=== PATIENT | male | born 1960 | race Caucasian/White ===

== ENCOUNTER 2021-04-07 18:03 | Emergency (ER) | payer BC ==
--- NOTE | 2021-04-07 20:24 | EDM.PDOCBH ---
ED HPI GENERAL MEDICAL PROBLEM - General Chief Complaint: Drug or Alcohol Abuse Stated Complaint: POSSIBLE DETOX Time Seen by Provider: 04/07/21 20:21 Source of Information: Reports: Patient History Limitations: Reports: No Limitations - History of Present Illness INITIAL COMMENTS - FREE TEXT/NARRATIVE: pt had a total knee done recently. He started abusing the oxycodone and then he started drinking. His ask him to leave the house a few days ago because of the drinking. He went to the [facility] and he asked for help today. He has a past history of a drinking problem and has been to treatment. Onset: Gradual Duration: Day(s): Location: Reports: Generalized, Other (pt was found today by ghis lying on the [facility] floor. ) Associated Symptoms: Reports: Other (pt is having persistent pain in the left knee. w) Left Knee Pain Score (Numeric/FACES): 8 - Related Data Allergies Allergy/AdvReac Type Severity Reaction Status Date / Time No Known Allergies Allergy Verified 04/07/21 20:24 Home Meds: Home Meds Escitalopram [Lexapro] 1 tab PO DAILY 04/07/21 [History] Losartan [Cozaar] 1 tab PO DAILY 04/07/21 [History] hydrOXYzine HCL [hydrOXYzine] 1 tab PO BID 04/07/21 [History] oxyCODONE 1 - 2 tab PO ASDIRECTED 04/07/21 [History] ED ROS GENERAL - Review of Systems Review Of Systems: See Below Constitutional: Reports: No Symptoms HEENT: Reports: No Symptoms Respiratory: Reports: No Symptoms Cardiovascular: Reports: No Symptoms Endocrine: Reports: No Symptoms GI/Abdominal: Reports: Nausea, Vomiting : Reports: No Symptoms Musculoskeletal: Reports: No Symptoms Skin: Reports: No Symptoms ED EXAM, BEHAVIORAL HEALTH - Physical Exam Exam: See Below Text/Narrative:: pt is feeling shakey and at this point is asking for help. He does want to go to detox. Exam Limited By: No Limitations General Appearance: Alert, Anxious, Mild Distress, Other (pupils are equal and reactive. ) Ears: Normal TMs Nose: Normal Inspection Throat/Mouth: Normal Inspection Head: Atraumatic Neck: Normal Inspection Respiratory/Chest: No Respiratory Distress Cardiovascular: Regular Rate, Rhythm, Tachycardia GI/Abdominal: Soft, Non-Tender Rectal (Males) Exam: Deferred Back Exam: Other (pt has a superficial abrasion on his back where he fell. ) Extremities: Other (pt had a total knee on the left recently done. This looks good and he has fair range of motion. He states he is numb below the incision. ) Neurological: Alert, Normal Cognition Psychiatric: Other (pt is feeling agitated. ) COURSE, BEHAVIORAL HEALTH COMP - Course Vital Signs: Last Vital Signs Temp 36.1 C 04/07/21 19:43 Pulse 124 H 04/07/21 19:43 Resp 16 04/07/21 19:43 BP 150/101 H 04/07/21 19:43 Pulse Ox 94 L 04/07/21 19:43 Orders, Labs, Meds: Laboratory Tests 04/07/21 04/07/21 04/07/21 Range/Units 20:20 20:20 20:20 WBC 6.1 (4.5-11.0) K/uL RBC 5.28 (4.30-5.90) M/uL Hgb 17.0 H (12.0-15.0) g/dL Hct 48.8 (40.0-54.0) % MCV 92 (80-98) fL MCH 32 H (27-31) pg MCHC 35 (32-36) % Plt Count 136 L (150-400) K/uL Neut % (Auto) 57.4 (36-66) % Lymph % (Auto) 31.4 (24-44) % [place] % (Auto) 9.1 H (2-6) % Eos % (Auto) 1.8 L (2-4) % Baso % (Auto) 0.3 (0-1) % Sodium 142 (140-148) mmol/L Potassium 4.0 (3.6-5.2) mmol/L Chloride 100 (100-108) mmol/L Carbon Dioxide 25 (21-32) mmol/L Anion Gap 17.2 H (5.0-14.0) mmol/L BUN 14 (7-18) mg/dL Creatinine 1.0 (0.8-1.3) mg/dL Est Cr Clr Drug Dosing 89.89 mL/min Estimated GFR (MDRD) > 60 (>60) Glucose 100 (74-106) mg/dL Calcium 9.0 (8.5-10.1) mg/dL Total Bilirubin 1.3 H (0.2-1.0) mg/dL AST 52 H (15-37) U/L ALT 37 (12-78) U/L Alkaline Phosphatase 138 H (46-116) U/L Total Protein 8.2 (6.4-8.2) g/dL Albumin 4.3 (3.4-5.0) g/dL Globulin 3.9 H (2.3-3.5) g/dL Albumin/Globulin Ratio 1.1 L (1.2-2.2) Urine Color (YELLOW) Urine Appearance (CLEAR) Urine pH (5.0-8.0) Ur Specific [place] (1.008-1.030) Urine Protein (NEGATIVE) mg/dL Urine Glucose (UA) (NEGATIVE) mg/dL Urine Ketones (NEGATIVE) mg/dL Urine Occult Blood (NEGATIVE) Urine Nitrite (NEGATIVE) Urine Bilirubin (NEGATIVE) Urine Urobilinogen (0.2-1.0) EU/dL Ur Leukocyte Esterase (NEGATIVE) Urine RBC (0-5) Urine WBC (0-5) Ur Epithelial Cells Amorphous Sediment Urine Bacteria Urine Mucus Urine Other Urine Opiates Screen (NEGATIVE) Ur Oxycodone Screen (NEGATIVE) Urine Methadone Screen (NEGATIVE) Ur Propoxyphene Screen (NEGATIVE) Ur Barbiturates Screen (NEGATIVE) Ur Tricyclics Screen (NEGATIVE) Ur Phencyclidine Scrn (NEGATIVE) Ur Amphetamine Screen (NEGATIVE) U Methamphetamines Scrn (NEGATIVE) Urine MDMA Screen (NEGATIVE) U Benzodiazepines Scrn (NEGATIVE) U Cocaine Metab Screen (NEGATIVE) U Marijuana (THC) Screen (NEGATIVE) Ethyl Alcohol 362 mg/dL 04/07/21 04/07/21 Range/Units 20:27 20:27 WBC (4.5-11.0) K/uL RBC (4.30-5.90) M/uL Hgb (12.0-15.0) g/dL Hct (40.0-54.0) % MCV (80-98) fL MCH (27-31) pg MCHC (32-36) % Plt Count (150-400) K/uL Neut % (Auto) (36-66) % Lymph % (Auto) (24-44) % [place] % (Auto) (2-6) % Eos % (Auto) (2-4) % Baso % (Auto) (0-1) % Sodium (140-148) mmol/L Potassium (3.6-5.2) mmol/L Chloride (100-108) mmol/L Carbon Dioxide (21-32) mmol/L Anion Gap (5.0-14.0) mmol/L BUN (7-18) mg/dL Creatinine (0.8-1.3) mg/dL Est Cr Clr Drug Dosing mL/min Estimated GFR (MDRD) (>60) Glucose (74-106) mg/dL Calcium (8.5-10.1) mg/dL Total Bilirubin (0.2-1.0) mg/dL AST (15-37) U/L ALT (12-78) U/L Alkaline Phosphatase (46-116) U/L Total Protein (6.4-8.2) g/dL Albumin (3.4-5.0) g/dL Globulin (2.3-3.5) g/dL Albumin/Globulin Ratio (1.2-2.2) Urine Color Yellow (YELLOW) Urine Appearance Clear (CLEAR) Urine pH 6.0 (5.0-8.0) Ur Specific [place] 1.020 (1.008-1.030) Urine Protein >=300 H (NEGATIVE) mg/dL Urine Glucose (UA) Negative (NEGATIVE) mg/dL Urine Ketones Negative (NEGATIVE) mg/dL Urine Occult Blood Small H (NEGATIVE) Urine Nitrite Negative (NEGATIVE) Urine Bilirubin Negative (NEGATIVE) Urine Urobilinogen 0.2 (0.2-1.0) EU/dL Ur Leukocyte Esterase Negative (NEGATIVE) Urine RBC 0-5 (0-5) Urine WBC 0-5 (0-5) Ur Epithelial Cells Rare Amorphous Sediment Few Urine Bacteria Occasional Urine Mucus Few Urine Other See note Urine Opiates Screen Negative (NEGATIVE) Ur Oxycodone Screen Presumptive positive H (NEGATIVE) Urine Methadone Screen Negative (NEGATIVE) Ur Propoxyphene Screen Negative (NEGATIVE) Ur Barbiturates Screen Negative (NEGATIVE) Ur Tricyclics Screen Negative (NEGATIVE) Ur Phencyclidine Scrn Negative (NEGATIVE) Ur Amphetamine Screen Negative (NEGATIVE) U Methamphetamines Scrn Negative (NEGATIVE) Urine MDMA Screen Negative (NEGATIVE) U Benzodiazepines Scrn Negative (NEGATIVE) U Cocaine Metab Screen Negative (NEGATIVE) U Marijuana (THC) Screen Negative (NEGATIVE) Ethyl Alcohol mg/dL Medications Discontinued Medications Generic Name Dose Route Start Last Admin Trade Name Freq PRN Reason Stop Dose Admin Diphtheria/Tetanus/Acell Pertussis 0.5 ml 04/07/21 20:56 04/07/21 21:07 Diphtheria,Pertussis(Acell),Tetanus Vaccine 0.5 Ml Syringe IM 04/07/21 20:57 0.5 ml .ONCE ONE Administration Lorazepam 1 mg 04/07/21 20:46 04/07/21 21:07 Lorazepam 1 Mg Tab PO 04/07/21 20:47 1 mg ONETIME ONE Administration Ondansetron HCl 4 mg 04/07/21 20:55 04/07/21 21:07 Ondansetron 4 Mg Tab.Dis PO 04/07/21 20:56 4 mg ONETIME ONE Administration Medical Clearance: 04/07/21 20:59 pt has stable lab work. He has a etoh of .367. He has a neg drug screen exceopt for oxycodone which he has used for his knee. Departure - Departure Time of Disposition: 20:59 Disposition: DC/Tfer to Psych Hosp/Unit 65 Condition: Fair Clinical Impression: Intoxication, ETOH abuse - Discharge Information Referrals: Franklin Okeefe MD [Primary Care Provider] - Forms: ED Department Discharge Additional Instructions: transfer to [place]. Sepsis Event Note (ED) - Evaluation Sepsis Screening Result: No Definite Risk
[2021-04-07] MEDS ORDERED: LORazepam 1 MG Tab PO ONE (20:46)
[2021-04-07] MEDS ORDERED: Ondansetron 4 MG Tab.DIS PO ONE (20:55)
[2021-04-07] MEDS ORDERED: Diphtheria,Pertussis(Acell),Tetanus Vaccine 0.5 ML Syringe IM ONE (20:56)
== END 2021-04-07 23:44 ==
LOC: JP.ED 18:03
DX: F10.129 Alcohol abuse with intoxication, unspecified (principal); Y90.8 Blood alcohol level of 240 mg/100 ml or more; Z79.899 Other long term (current) drug therapy; Z23 Encounter for immunization
CPT/HCPCS: 36415; 80053; 80305; 80307; 81001; 85025; 90471; 90715; 99283; 99285; A9270

== ENCOUNTER 2021-05-31 18:37 | Emergency (ER) | payer BC ==
--- NOTE | 2021-05-31 19:09 | EDM.PDOCBH ---
ED HPI GENERAL MEDICAL PROBLEM - General Chief Complaint: Drug or Alcohol Abuse Stated Complaint: NEEDS CLEARANCE FOR [facility] Time Seen by Provider: 05/31/21 18:55 Source of Information: Reports: Patient History Limitations: Reports: No Limitations - History of Present Illness INITIAL COMMENTS - FREE TEXT/NARRATIVE: Jeremiah is a 61-year-old male presenting to the ED for medical clearance to go to detox at [facility]. Patient has a history significant for oxycodone and alcohol abuse. He has been in detox and had undergone treatment prior at [facility]. His last visit to the ED was on 04/12/2021 at which time he was cleared to go to detox at [facility]. The patient denies any history of withdrawal seizures, however, he typically does not do well with detox without help. His last drink was about 30 minutes prior to coming in. He is consumed a pint of vodka today. He states he started drinking again about 2 weeks ago and his filed divorce papers on him. He has been staying with a friend and is definitely motivated to sober up. He does attend and does have a sponsor. He previously had issues with oxycodone after having a knee replacement surgery, however, he has since discontinued its use. He did contact [facility] and they do have a bed available for him to detox. - Related Data Allergies Allergy/AdvReac Type Severity Reaction Status Date / Time No Known Allergies Allergy Verified 05/31/21 19:14 Home Meds: Home Meds Escitalopram [Lexapro] 1 tab PO DAILY 04/07/21 [History] Losartan [Cozaar] 1 tab PO DAILY 04/07/21 [History] hydrOXYzine HCL [hydrOXYzine] 1 tab PO BID 04/07/21 [History] Past Medical History Psychiatric History: Reports: Depression - Infectious Disease History Infectious Disease History: Reports: Chicken Pox - Past Surgical History Musculoskeletal Surgical History: Reports: Knee Replacement ED ROS GENERAL - Review of Systems Review Of Systems: See Below Constitutional: Reports: No Symptoms HEENT: Reports: No Symptoms Respiratory: Reports: No Symptoms Cardiovascular: Reports: No Symptoms Endocrine: Reports: No Symptoms GI/Abdominal: Reports: No Symptoms : Reports: No Symptoms Musculoskeletal: Reports: No Symptoms Skin: Reports: No Symptoms Neurological: Reports: No Symptoms Psychiatric: Reports: Other (History of alcoholism, intoxicated) Hematologic/Lymphatic: Reports: No Symptoms Immunologic: Reports: No Symptoms ED EXAM, BEHAVIORAL HEALTH - Physical Exam Exam: See Below Exam Limited By: No Limitations General Appearance: Alert, No Apparent Distress, Anxious Eye Exam: Bilateral Eye: EOMI, PERRL Throat/Mouth: Normal Inspection, Normal Lips, Normal Oropharynx, Normal Voice, No Airway Compromise Head: Atraumatic, Normocephalic Neck: Normal Inspection, Supple, Non-Tender, Full Range of Motion Respiratory/Chest: No Respiratory Distress, Lungs Clear, Normal Breath Sounds Cardiovascular: Normal Peripheral Pulses, Regular Rate, Rhythm, No Murmur GI/Abdominal: Normal Bowel Sounds, Soft, Non-Tender Back Exam: Normal Inspection, Full Range of Motion Extremities: Normal Inspection Neurological: Alert, Normal Mood/Affect, Normal Cognition, Normal Gait, No Motor/Sensory Deficits, Oriented x 3 Psychiatric: Alert, Normal Affect, Normal Cognition, Normal Mood, Oriented Skin Exam: Warm, Dry, Intact, Normal color COURSE, BEHAVIORAL HEALTH COMP - Course Vital Signs: Last Vital Signs Temp 36.5 C 05/31/21 19:02 Pulse 100 05/31/21 19:02 Resp 20 05/31/21 19:02 BP 191/108 H 05/31/21 19:02 Pulse Ox 95 05/31/21 19:02 Orders, Labs, Meds: Active Orders 24 hr Category Date Time Status CORONAVIRUS COVID-19 RAPID [MOLEC] Stat Lab 05/31/21 19:18 Ordered Laboratory Tests 05/31/21 05/31/21 05/31/21 Range/Units 19:10 19:10 19:10 WBC 6.1 (4.5-11.0) K/uL RBC 3.82 L (4.30-5.90) M/uL Hgb 12.7 D (12.0-15.0) g/dL Hct 35.7 L (40.0-54.0) % MCV 94 (80-98) fL MCH 33 H (27-31) pg MCHC 36 (32-36) % Plt Count 92 L (150-400) K/uL Neut % (Auto) 69.5 H (36-66) % Lymph % (Auto) 17.4 L (24-44) % [place] % (Auto) 10.8 H (2-6) % Eos % (Auto) 2.1 (2-4) % Baso % (Auto) 0.2 (0-1) % Sodium 137 L (140-148) mmol/L Potassium 3.4 L (3.6-5.2) mmol/L Chloride 99 L (100-108) mmol/L Carbon Dioxide 23 (21-32) mmol/L Anion Gap 18.4 H (5.0-14.0) mmol/L BUN 15 (7-18) mg/dL Creatinine 1.0 (0.8-1.3) mg/dL Est Cr Clr Drug Dosing 88.78 mL/min Estimated GFR (MDRD) > 60 (>60) Glucose 98 (74-106) mg/dL Calcium 9.0 (8.5-10.1) mg/dL Total Bilirubin 1.6 H (0.2-1.0) mg/dL AST 76 H (15-37) U/L ALT 74 D (12-78) U/L Alkaline Phosphatase 129 H (46-116) U/L Total Protein 7.3 (6.4-8.2) g/dL Albumin 3.7 (3.4-5.0) g/dL Globulin 3.6 H (2.3-3.5) g/dL Albumin/Globulin Ratio 1.0 L (1.2-2.2) Urine Color (YELLOW) Urine Appearance (CLEAR) Urine pH (5.0-8.0) Ur Specific [place] (1.008-1.030) Urine Protein (NEGATIVE) mg/dL Urine Glucose (UA) (NEGATIVE) mg/dL Urine Ketones (NEGATIVE) mg/dL Urine Occult Blood (NEGATIVE) Urine Nitrite (NEGATIVE) Urine Bilirubin (NEGATIVE) Urine Urobilinogen (0.2-1.0) EU/dL Ur Leukocyte Esterase (NEGATIVE) Urine RBC (0-5) Urine WBC (0-5) Ur Epithelial Cells Amorphous Sediment Urine Bacteria Urine Mucus Urine Opiates Screen (NEGATIVE) Ur Oxycodone Screen (NEGATIVE) Urine Methadone Screen (NEGATIVE) Ur Propoxyphene Screen (NEGATIVE) Ur Barbiturates Screen (NEGATIVE) Ur Tricyclics Screen (NEGATIVE) Ur Phencyclidine Scrn (NEGATIVE) Ur Amphetamine Screen (NEGATIVE) U Methamphetamines Scrn (NEGATIVE) Urine MDMA Screen (NEGATIVE) U Benzodiazepines Scrn (NEGATIVE) U Cocaine Metab Screen (NEGATIVE) U Marijuana (THC) Screen (NEGATIVE) Ethyl Alcohol 31 mg/dL 05/31/21 05/31/21 Range/Units 19:19 19:21 WBC (4.5-11.0) K/uL RBC (4.30-5.90) M/uL Hgb (12.0-15.0) g/dL Hct (40.0-54.0) % MCV (80-98) fL MCH (27-31) pg MCHC (32-36) % Plt Count (150-400) K/uL Neut % (Auto) (36-66) % Lymph % (Auto) (24-44) % [place] % (Auto) (2-6) % Eos % (Auto) (2-4) % Baso % (Auto) (0-1) % Sodium (140-148) mmol/L Potassium (3.6-5.2) mmol/L Chloride (100-108) mmol/L Carbon Dioxide (21-32) mmol/L Anion Gap (5.0-14.0) mmol/L BUN (7-18) mg/dL Creatinine (0.8-1.3) mg/dL Est Cr Clr Drug Dosing mL/min Estimated GFR (MDRD) (>60) Glucose (74-106) mg/dL Calcium (8.5-10.1) mg/dL Total Bilirubin (0.2-1.0) mg/dL AST (15-37) U/L ALT (12-78) U/L Alkaline Phosphatase (46-116) U/L Total Protein (6.4-8.2) g/dL Albumin (3.4-5.0) g/dL Globulin (2.3-3.5) g/dL Albumin/Globulin Ratio (1.2-2.2) Urine Color Yellow (YELLOW) Urine Appearance Clear (CLEAR) Urine pH 7.0 (5.0-8.0) Ur Specific [place] 1.010 (1.008-1.030) Urine Protein Negative (NEGATIVE) mg/dL Urine Glucose (UA) Negative (NEGATIVE) mg/dL Urine Ketones Negative (NEGATIVE) mg/dL Urine Occult Blood Negative (NEGATIVE) Urine Nitrite Negative (NEGATIVE) Urine Bilirubin Negative (NEGATIVE) Urine Urobilinogen 0.2 (0.2-1.0) EU/dL Ur Leukocyte Esterase Negative (NEGATIVE) Urine RBC 0-5 (0-5) Urine WBC Not seen (0-5) Ur Epithelial Cells Rare Amorphous Sediment Rare Urine Bacteria Rare Urine Mucus Rare Urine Opiates Screen Negative (NEGATIVE) Ur Oxycodone Screen Negative (NEGATIVE) Urine Methadone Screen Negative (NEGATIVE) Ur Propoxyphene Screen Negative (NEGATIVE) Ur Barbiturates Screen Negative (NEGATIVE) Ur Tricyclics Screen Negative (NEGATIVE) Ur Phencyclidine Scrn Negative (NEGATIVE) Ur Amphetamine Screen Negative (NEGATIVE) U Methamphetamines Scrn Negative (NEGATIVE) Urine MDMA Screen Negative (NEGATIVE) U Benzodiazepines Scrn Negative (NEGATIVE) U Cocaine Metab Screen Negative (NEGATIVE) U Marijuana (THC) Screen Negative (NEGATIVE) Ethyl Alcohol mg/dL Re-Assessment/Re-Exam: I reviewed the patient's labs showing a normal hemoglobin with leukocyte count of 6.1, hemoglobin of 12.7, hematocrit 35.7 and platelet count of 92,000. The comprehensive metabolic panel significant for sodium 137, potassium 3.4, chloride of 99, bicarbonate of 23, BUN of 15 with a creatinine of 1.0 and a glucose of 98. Total bili is mildly elevated at 1.6. AST is 76 with an ALT of 74 and alkaline phosphatase of 129. Urine drug screen and urinalysis are both negative. Ethanol level is at 31. From a medical standpoint patient is cleared for admission to detox at [facility]. Medical Clearance: 05/31/21 19:57 patient is medically cleared for admission to detox at [facility]. Discharge vs Psych Eval/Treatment:: 05/31/21 19:57 be transferred to [facility] for detox. Departure - Departure Time of Disposition: 19:57 Disposition: DC/Tfer to Psych Hosp/Unit 65 Clinical Impression: Alcohol withdrawal syndrome Qualifiers: Complication of substance-induced condition: uncomplicated Qualified Code(s): F10.230 - Alcohol dependence with withdrawal, uncomplicated - Discharge Information Referrals: Franklin Okeefe MD [Primary Care Provider] - Forms: ED Department Discharge Sepsis Event Note (ED) - Evaluation Sepsis Screening Result: No Definite Risk - Focused Exam Vital Signs: Vital Signs Temp Pulse Resp BP Pulse Ox 05/31/21 19:02 36.5 C 100 20 191/108 H 95 05/31/21 18:55 36.5 C 100 20 191/108 H 95 - My Orders Last 24 Hours: My Active Orders 05/31/21 19:18 CORONAVIRUS COVID-19 RAPID [MOLEC] Stat - Assessment/Plan Last 24 Hours: My Active Orders 05/31/21 19:18 CORONAVIRUS COVID-19 RAPID [MOLEC] Stat
== END 2021-05-31 20:59 ==
LOC: JP.ED 18:37
DX: F10.230 Alcohol dependence with withdrawal, uncomplicated (principal); Z79.899 Other long term (current) drug therapy
CPT/HCPCS: 36415; 80053; 80305-QW; 80307; 81001; 85025; 99285

== ENCOUNTER 2022-09-16 12:29 | Inpatient (IN) | payer BC ==
[2022-09-16] MEDS ORDERED: Sodium Chloride 0.9% 1,000 ML IV ONE (13:30)
[2022-09-16] MEDS ORDERED: Sodium Chloride 0.9% 10 ML Syringe FLUSH PRN (13:30)
[2022-09-16 14:09] LABS: ESTIMATED GFR 76 mL/min (>60)
[2022-09-16] MEDS ORDERED: Calcium Carbonate 500 MG Tab.Chew PO ONE (14:30)
[2022-09-16] MEDS ORDERED: Thiamine 100 MG Tab PO ONE (14:57)
[2022-09-16] MEDS ORDERED: Folic Acid 1 MG Tab PO ONE (14:58)
[2022-09-16] MEDS: Dextrose 5%-Lactated Ringers 1,000 ML IV SCH (15:01)
[2022-09-16] MEDS ORDERED: Ondansetron 4 MG/2 ML SDV IVPUSH ONE (16:41)
[2022-09-16] MEDS ORDERED: LORazepam 0.5 MG Tab PO ONE (17:02)
[2022-09-16] MEDS ORDERED: Magnesium Hydroxide 400 MG/5 ML Susp 30 ML Cup PO PRN (17:55)
[2022-09-16] MEDS ORDERED: Ondansetron 4 MG Tab.DIS PO PRN (17:55)
[2022-09-16] MEDS ORDERED: Acetaminophen 325 MG Tab PO PRN (17:55)
[2022-09-16] MEDS ORDERED: Ibuprofen 600 MG Tab PO PRN (17:55)
[2022-09-16] MEDS: LORazepam 1 MG Tab PO SCH ×2 (18:21→19:53)
[2022-09-16] MEDS: Melatonin 3 MG Tab PO SCH (20:12)
[2022-09-16] MEDS: LORazepam 2 MG/ML SDV IV SCH (21:34)
[2022-09-16] MEDS: Pantoprazole 40 MG Tab.CR PO SCH (21:35)
[2022-09-17] MEDS: LORazepam 1 MG Tab PO SCH ×4 (05:30→20:05)
[2022-09-17 05:57] LABS: ESTIMATED GFR 101 mL/min (>60)
[2022-09-17] MEDS: Ondansetron 4 MG/2 ML SDV IV PRN ×2 (09:33→16:17)
[2022-09-17] MEDS: Pantoprazole 40 MG Tab.CR PO SCH ×2 (09:38→20:37)
[2022-09-17] MEDS: Thiamine 100 MG Tab PO SCH (09:38)
[2022-09-17] MEDS: Folic Acid 1 MG Tab PO SCH (09:38)
[2022-09-17] MEDS: Dextrose 5%-Lactated Ringers 1,000 ML IV SCH ×2 (09:40→19:44)
[2022-09-17] MEDS: LORazepam 2 MG/ML SDV IV SCH ×2 (16:17→23:14)
[2022-09-17] MEDS: Melatonin 3 MG Tab PO SCH (20:11)
[2022-09-18] MEDS: LORazepam 1 MG Tab PO SCH ×8 (00:38→19:59)
[2022-09-18] MEDS: Losartan 50 MG Tab PO SCH (08:29)
[2022-09-18] MEDS: Pantoprazole 40 MG Tab.CR PO SCH ×2 (08:29→19:59)
[2022-09-18] MEDS: Folic Acid 1 MG Tab PO SCH (08:29)
[2022-09-18] MEDS: Thiamine 100 MG Tab PO SCH (08:29)
[2022-09-18] MEDS ORDERED: Non-Formulary Medication 1 Each (Losartan [Cozaar] 100 MG Tablet) PO SCH (09:00)
[2022-09-18] MEDS: Ondansetron 4 MG/2 ML SDV IV PRN (10:16)
[2022-09-18] MEDS: LORazepam 2 MG/ML SDV IV SCH ×3 (15:55→22:55)
[2022-09-18] MEDS: Melatonin 3 MG Tab PO SCH (19:59)
[2022-09-19] MEDS: LORazepam 1 MG Tab PO SCH ×3 (02:10→07:13)
[2022-09-19 04:54] LABS: ESTIMATED GFR 69 mL/min (>60)
[2022-09-19] MEDS: Pantoprazole 40 MG Tab.CR PO SCH ×2 (07:09→21:18)
[2022-09-19] MEDS: Losartan 50 MG Tab PO SCH ×2 (07:12→09:08)
[2022-09-19] MEDS ORDERED: Haloperidol Lactate 5 MG/ML SDV IVPUSH ONE (07:45)
[2022-09-19] MEDS: LORazepam 2 MG/ML SDV IV SCH ×6 (07:45→19:39)
[2022-09-19] MEDS: Thiamine 100 MG Tab PO SCH (11:36)
[2022-09-19] MEDS: Haloperidol Lactate 5 MG/ML SDV IVPUSH PRN ×2 (13:14→18:39)
[2022-09-19] MEDS: Folic Acid 1 MG Tab PO SCH (14:28)
[2022-09-19] MEDS: Melatonin 3 MG Tab PO SCH (21:04)
[2022-09-20 05:08] LABS: ESTIMATED GFR 53 mL/min (>60)
[2022-09-20] MEDS: Losartan 50 MG Tab PO SCH (08:56)
[2022-09-20] MEDS: Pantoprazole 40 MG Tab.CR PO SCH ×3 (08:56→21:47)
[2022-09-20] MEDS: Thiamine 100 MG Tab PO SCH (08:56)
[2022-09-20] MEDS: Folic Acid 1 MG Tab PO SCH (20:06)
[2022-09-20] MEDS: Melatonin 3 MG Tab PO SCH (21:47)
[2022-09-21 05:17] LABS: ESTIMATED GFR 76 mL/min (>60)
[2022-09-21] MEDS: Pantoprazole 40 MG Tab.CR PO SCH (07:42)
[2022-09-21] MEDS: Thiamine 100 MG Tab PO SCH (08:43)
[2022-09-21] MEDS: Losartan 50 MG Tab PO SCH (08:43)
[2022-09-21] MEDS: Folic Acid 1 MG Tab PO SCH (08:46)
== END 2022-09-21 14:50 | disposition home or self-care (01) | DRG 775 ==
LOC: JP.ED 12:29 → JP.ICU 17:03 → OBSVTOIN 09-17 13:44 → JP.MS 09-21 10:42
PROVIDERS: ADMIT Internal Medicine; ATTEND Hospitalist
DX: F10.231 Alcohol dependence with withdrawal delirium (principal); F17.200 Nicotine dependence, unspecified, uncomplicated; Z96.649 Presence of unspecified artificial hip joint; Z96.659 Presence of unspecified artificial knee joint; F32.A Depression, unspecified; I10 Essential (primary) hypertension; Z20.822 Contact with and (suspected) exposure to COVID-19; K70.10 Alcoholic hepatitis without ascites; F10.288 Alcohol dependence with other alcohol-induced disorder; Y90.8 Blood alcohol level of 240 mg/100 ml or more; F10.229 Alcohol dependence with intoxication, unspecified; Z79.899 Other long term (current) drug therapy; Z86.16 Personal history of COVID-19
CPT/HCPCS: 36415; 80053; 80305-QW; 80307; 82140; 83690; 83735; 85025; 85610; 96361; 96374; 96375; 99284-25; A9270-GY; G0378; J1630; J2060; J2405; J3490; J7030; J7121; U0002

== ENCOUNTER 2023-02-20 13:02 | Emergency (ER) | payer BC ==
[2023-02-20 14:05] LABS: AMPHETAMINES SCREEN, URINE NEGATIVE (NEGATIVE); BARBITURATE SCREEN,URINE NEGATIVE (NEGATIVE); BENZODIAZEPINES SCREEN,URINE NEGATIVE (NEGATIVE); METHADONE SCREEN, URINE NEGATIVE (NEGATIVE); METHAMPHETAMINES SCREEN, URINE NEGATIVE (NEGATIVE); OXYCODONE SCREEN,URINE NEGATIVE (NEGATIVE); PROPOXYPHENE SCREEN,URINE NEGATIVE (NEGATIVE); THC SCREEN,URINE 50 NG/ML PRESUMPTIVE POSITIVE (NEGATIVE)
[2023-02-20] MEDS ORDERED: Ondansetron 4 MG Tab.DIS PO ONE (14:35)
== END 2023-02-20 15:57 | disposition other institution (70) ==
LOC: JP.ED 13:02
DX: F10.10 Alcohol abuse, uncomplicated (principal); I10 Essential (primary) hypertension; Z86.16 Personal history of COVID-19; Z79.899 Other long term (current) drug therapy; Z72.0 Tobacco use; Y90.1 Blood alcohol level of 20-39 mg/100 ml; Z20.822 Contact with and (suspected) exposure to COVID-19
CPT/HCPCS: 36415; 80305; 80307; 87635; 99284; Q0162; U0002

== ENCOUNTER 2023-09-18 14:12 | Emergency (ER) | payer BC ==
[2023-09-18] MEDS ORDERED: LORazepam 2 MG/ML SDV IVPUSH ONE (15:32)
[2023-09-18] MEDS ORDERED: Sodium Chloride 0.9% 10 ML Syringe FLUSH PRN (15:37)
[2023-09-18 15:40] LABS: BASOPHILS ABSOLUTE AUTO 0.03 K/uL (0.00-0.10); BASOPHILS PERCENT AUTO 0.9 % (0.1-1.3); EOSINOPHILS ABSOLUTE AUTO 0.04 K/uL (0.00-0.40); EOSINOPHILS PERCENT AUTO 1.3 % (0.0-5.4); HEMATOCRIT 46.3 % (38.4-49.7); HEMOGLOBIN 16.7 g/dL (12.9-16.9); LYMPHOCYTES ABSOLUTE AUTO 1.37 K/uL (0.8-3.3); LYMPHOCYTES PERCENT AUTO 43.1 % (11.4-47.7); MEAN CORPUSCULAR HEMOGLOBIN 32.9 pg (31.6-35.5); MEAN CORPUSCULAR HGB CONC 36.1 g/dL (31.6-35.5); MEAN CORPUSCULAR VOLUME 91.3 fL (81.4-99.0); MONOCYTES ABSOLUTE AUTO 0.37 K/uL (0.20-0.90); MONOCYTES PERCENT AUTO 11.6 % (3.3-12.6); NEUTROPHILS ABSOLUTE AUTO 1.37 K/uL (1.0-7.6); NEUTROPHILS PERCENT AUTO 43.1 % (40.0-78.1); PLATELET COUNT,PLT 93 K/uL (130-375); RED BLOOD CELL COUNT 5.07 M/uL (4.14-5.76); WHITE BLOOD CELL COUNT,WBC 3.2 K/uL (3.2-11.0)
[2023-09-18 15:58] LABS: INR 1.2; PROTHROMBIN TIME 11.8 sec (9.2-10.6)
[2023-09-18 16:09] LABS: A/G RATIO 1.2 (1.2-2.2); ALANINE AMINOTRANSFERASE,ALT 150 U/L (12-78); ALBUMIN 4.6 g/dL (3.4-5.0); ALKALINE PHOSPHATASE 107 U/L (46-116); ASPARTATE AMNIOTRANSFERASE,AST 192 U/L (15-37); BILIRUBIN TOTAL 1.8 mg/dL (0.2-1.0); BLOOD UREA NITROGEN,BUN 16 mg/dL (7-18); CALCIUM 8.6 mg/dL (8.5-10.1); CARBON DIOXIDE,CO2 28 mmol/L (21-32); CHLORIDE,CL 96 mmol/L (100-108); EST CRCL DRUG DOSING (CG) 86.56 mL/min; ESTIMATED GFR 85 mL/min (>60); GLUCOSE RANDOM 107 mg/dL (74-106); POTASSIUM,K 4.2 mmol/L (3.6-5.2); PROTEIN TOTAL,TP 8.3 g/dL (6.4-8.2); SODIUM,NA 140 mmol/L (140-148)
[2023-09-18 16:10] LABS: ANION GAP 20.2 mmol/L (5.0-14.0)
[2023-09-18] MEDS ORDERED: Sodium Chloride 0.9% 1,000 ML IV ONE (16:17)
[2023-09-18 16:18] LABS: AMPHETAMINES SCREEN, URINE NEGATIVE (NEGATIVE); BARBITURATE SCREEN,URINE NEGATIVE (NEGATIVE); BENZODIAZEPINES SCREEN,URINE NEGATIVE (NEGATIVE); METHADONE SCREEN, URINE NEGATIVE (NEGATIVE); METHAMPHETAMINES SCREEN, URINE NEGATIVE (NEGATIVE); OXYCODONE SCREEN,URINE NEGATIVE (NEGATIVE); PROPOXYPHENE SCREEN,URINE NEGATIVE (NEGATIVE); THC SCREEN,URINE 50 NG/ML PRESUMPTIVE POSITIVE (NEGATIVE)
[2023-09-18] MEDS ORDERED: Polymyxin B/Trimethoprim 10 ML Bottle EYEBOTH ONE ×2 (17:44→18:07)
== END 2023-09-18 18:10 | disposition home or self-care (01) ==
LOC: JP.ED 14:12
DX: H10.33 Unspecified acute conjunctivitis, bilateral (principal); F10.920 Alcohol use, unspecified with intoxication, uncomplicated; I10 Essential (primary) hypertension; Z79.899 Other long term (current) drug therapy
CPT/HCPCS: 36415; 80053; 80305; 80307; 83605; 83690; 83735; 85025; 85610; 96374; 99284; A9270; J2060; J7030